=== PATIENT | female | born 1940 | race Caucasian/White ===

== ENCOUNTER → 2021-05-18 | Day surgery (SDC) | payer MEDICARE, OTHER ==
[~2021-05-18] MED LIST: Acetaminophen/HYDROcodone 325-5 MG Tab PO PRN; Lactated Ringers 1,000 ML IV SCH; Lactated Ringers 1,000 ML ONE; Lidocaine 1% 4 ML ONE; Lidocaine 1%/Sod Bicarbonate in NS 8.4% 1 ML Syringe IDERM PRN; Ondansetron 4 MG/2 ML SDV IVPUSH PRN; Ondansetron 4 MG/2 ML SDV ONE; Propofol 200 MG/20 ML SDV ONE; Sodium Chloride 0.9% 10 ML Syringe FLUSH PRN; Vancomycin 1 GM SDV ONE; ceFAZolin 1 GM Vial ONE; ePHEDrine 50 MG/ML SDV ONE; fentaNYL 100 MCG/2 ML SDV IVPUSH PRN; fentaNYL 100 MCG/2 ML SDV ONE
[2021-05-18] MEDS: Morphine 8 MG, EPINEPHrine 0.3 MG, Cefuroxime 750 MG, Ketorolac 30 MG, Sodium Chloride ... PRN ×10 (08:17→08:42)
[2021-05-18] MEDS: Vancomycin 1 GM SDV ONE ×2 (08:18→08:42)
--- NOTE | 2021-05-18 08:32 | PCM.PREANE ---
Preanesthetic Assessment - Procedure Proposed Procedure: Right total hip replacement - Anesthesia/Transfusion/Family Hx Anesthesia History: Prior Anesthesia Reaction Type of Anesthesia Reaction: Excessive Nausea/Vomiting Family History of Anesthesia Reaction: No Transfusion History: No Prior Transfusion(s) Intubation History: Unknown - Review of Systems General: No Symptoms Pulmonary: No Symptoms Cardiovascular: No Symptoms, Other (HX htn, hld) Gastrointestinal: No Symptoms Neurological: No Symptoms Other: Reports: Thyroid Problems - Physical Assessment NPO Status Date: 05/17/21 NPO Status Time: 16:00 Vital Signs: Last Vital Signs Temp 36.7 C 05/18/21 06:10 Pulse 57 L 05/18/21 06:10 Resp 16 05/18/21 06:10 BP 140/79 05/18/21 06:10 Pulse Ox 96 05/18/21 06:10 Height: 1.75 m Weight: 80.739 kg ASA Class: 3 Mental Status: Alert & Oriented x3 Airway Class: Mallampati = 2 Dentition: Reports: Normal Dentition Thyro-Mental Finger Breadths: 3 Mouth Opening Finger Breadths: 3 ROM/Head Extension: Full Lungs: Clear to Auscultation, Normal Respiratory Effort Cardiovascular: Regular Rate, Regular Rhythm - Lab Values: Laboratory Last Values PT 10.3 SECONDS (9.7-12.0) 05/18/21 06:00 INR 0.93 05/18/21 06:00 APTT 25.7 SECONDS (21.7-31.4) 05/18/21 06:00 Blood Type A POSITIVE 05/18/21 06:35 Gel Antibody Screen Negative 05/18/21 06:35 - Allergies Allergies/Adverse Reactions: Allergies Allergy/AdvReac Type Severity Reaction Status Date / Time No Known Allergies Allergy Verified 05/18/21 07:13 - Blood Blood Available: No Product(s) Available: None - Anesthesia Plan Pre-Op Medication Ordered: None - Acknowledgements Anesthesia Type Planned: Spinal Pt an Appropriate Candidate for the Planned Anesthesia: Yes Alternatives and Risks of Anesthesia Discussed w Pt/Guardian: Yes Pt/Guardian Understands and Agrees with Anesthesia Plan: Yes PreAnesthesia Questionnaire HEENT History: Reports: Cataract, Glaucoma, Impaired Vision Cardiovascular History: Reports: High Cholesterol, Hypertension Respiratory History: Reports: None Gastrointestinal History: Reports: Other (See Below) Other Gastrointestinal History: POST OP NAUSEA AND VOMITING Genitourinary History: Reports: None FILE CLERK History: Reports: None Musculoskeletal History: Reports: Osteoarthritis, Other (See Below) Other Musculoskeletal History: WRIST PAIN, RADIAL STYLOID TENOSYNOVITIS, LEFT WRIST SURGERY Neurological History: Reports: None Psychiatric History: Reports: None Endocrine/Metabolic History: Reports: Hypothyroidism Hematologic History: Reports: None Immunologic History: Reports: None Oncologic (Cancer) History: Reports: None Dermatologic History: Reports: Other (See Below) Other Dermatologic History: MALIGNANT MELANOMA - Infectious Disease History Infectious Disease History: Reports: None - Past Surgical History Head Surgeries/Procedures: Reports: None HEENT Surgical History: Reports: Cataract Surgery Cardiovascular Surgical History: Reports: None Respiratory Surgical History: Reports: None GI Surgical History: Reports: None Female Surgical History: Reports: D&C Male Surgical History: Reports: None Endocrine Surgical History: Reports: Thyroidectomy Neurological Surgical History: Reports: Other (See Below) Other Neurological Surgeries/Procedures: BACK SURGERY Musculoskeletal Surgical History: Reports: None Oncologic Surgical History: Reports: None Dermatological Surgical History: Reports: None - SUBSTANCE USE Tobacco Use Status *Q: Never Tobacco User Recreational Drug Use History: No - HOME MEDS Home Medications: Home Meds Aspirin [Aspirin EC] 325 mg PO BID #70 tab 05/17/21 [Rx] Furosemide [Lasix] 20 mg PO ASDIRECTED 05/17/21 [History] Hydrocodone/Acetaminophen [HYDROcodone-Acetaminophen 5-325 MG] 1 - 2 each PO Q6H PRN #30 tablet 05/17/21 [Rx] Levothyroxine [Synthroid] 100 mcg PO DAILY 05/17/21 [History] Multivitamin 1 tab PO DAILY 05/17/21 [History] Propylene Glycol/PEG 400/Pf [Systane 0.3-0.4% Eye Drop] 1 dose EYEBOTH ASDIRECTED PRN 05/17/21 [History] Rosuvastatin [Crestor] 20 mg PO DAILY 05/17/21 [History] amLODIPine [Norvasc] 2.5 mg PO DAILY 05/17/21 [History] atenoloL [Atenolol] 50 mg PO DAILY 05/17/21 [History] Acetaminophen [Tylenol Arthritis] 650 mg PO Q4H PRN #0 05/18/21 [Rx] - CURRENT (IN HOUSE) MEDS Current Meds: Current Medications Morphine Sulfate 8 mg/Epinephrine HCl 0.3 mg/Cefuroxime Sodium 750 mg/Ketorolac Tromethamine 30 mg/Sodium Chloride 7.9 ml 0 mg .XX ASDIRECTED PRN PRN Reason: Pain Stop: 05/18/21 18:00 Last Admin: 05/18/21 08:17 Dose: 788.3 mg Documented by: Lactated Ringer's (Ringers, Lactated) 1,000 mls @ 125 mls/hr IV ASDIRECTED FELICIA Stop: 05/18/21 23:00 Last Admin: 05/18/21 06:35 Dose: 125 mls/hr Documented by: Lidocaine/Sodium Bicarbonate (Lidocaine 1%/Sod Bicarbonate In Ns 8.4% 1 Ml Syringe) 0.25 ml IDERM ONETIME PRN PRN Reason: Prior to IV Start Stop: 05/18/21 18:00 Last Admin: 05/18/21 06:35 Dose: 0.25 ml Documented by: Sodium Chloride (Sodium Chloride 0.9% 10 Ml Syringe) 10 ml FLUSH ASDIRECTED PRN PRN Reason: Keep Vein Open Stop: 05/18/21 18:00 Discontinued Medications Cefazolin Sodium (Cefazolin 1 Gm Vial) Confirm Administered Dose 2 gm .ROUTE .STK-MED ONE Stop: 05/18/21 07:08 Ephedrine Sulfate (Ephedrine 50 Mg/Ml Sdv) Confirm Administered Dose 50 mg .ROUTE .STK-MED ONE Stop: 05/18/21 08:19 Fentanyl (Fentanyl 100 Mcg/2 Ml Sdv) Confirm Administered Dose 100 mcg .ROUTE .STK-MED ONE Stop: 05/18/21 06:44 Lidocaine HCl (Xylocaine-Mpf 1%) Confirm Administered Dose 4 mls @ as directed .ROUTE .STK-MED ONE Stop: 05/18/21 07:27 Lactated Ringer's (Ringers, Lactated) Confirm Administered Dose 1,000 mls @ as directed .ROUTE .STK-MED ONE Stop: 05/18/21 08:15 Miscellaneous Medication (Phenylephrine Hcl In 0.9% Nacl 1 Mg/10 Ml Syringe) Confirm Administered Dose 1 mg .ROUTE .STK-MED ONE Stop: 05/18/21 07:59 Propofol (Propofol 200 Mg/20 Ml Sdv) Confirm Administered Dose 600 mg .ROUTE .STK-MED ONE Stop: 05/18/21 06:44 Tranexamic Acid (Tranexamic Acid 1,000 Mg/10 Ml Amp) Confirm Administered Dose 1,000 mg .ROUTE .ST-MED ONE Stop: 05/18/21 06:29 Last Admin: 05/18/21 08:17 Dose: 1,000 mg Documented by: Vancomycin HCl (Vancomycin 1 Gm Sdv) Confirm Administered Dose 1 gm .ROUTE .ST- MED ONE Stop: 05/18/21 06:29 Vancomycin HCl (Vancomycin 1 Gm Sdv) Confirm Administered Dose 1 gm .ROUTE .ST- MED ONE Stop: 05/18/21 06:44 Last Admin: 05/18/21 08:18 Dose: 1 gm Documented by:
--- NOTE | 2021-05-18 09:18 | PCM.POSTAN ---
POST ANESTHESIA ASSESSMENT - MENTAL STATUS Mental Status: Alert, Oriented - VITAL SIGNS Vital Signs: Last Vital Signs Temp 36.7 C 05/18/21 06:10 Pulse 57 L 05/18/21 06:10 Resp 16 05/18/21 06:10 BP 140/79 05/18/21 06:10 Pulse Ox 96 05/18/21 06:10 - RESPIRATORY Respiratory Status: Respiratory Rate WNL, Airway Patent, O2 Saturation Stable - CARDIOVASCULAR CV Status: Pulse Rate WNL, Blood Pressure Stable - GASTROINTESTINAL GI Status: No Symptoms - PAIN Pain Score: 0 - POST OP HYDRATION Hydration Status: Adequate & Stable
--- NOTE | 2021-05-18 10:05 | CR ---
Pelvis and right hip: AP view of the pelvis was obtained as well as AP and crosstable lateral views of the right hip. Comparison: Prior CT right hip study of 05/10/21. Recently placed right hip prosthesis is noted. Components are aligned. Soft tissue air is noted from the surgical procedure. No acute bony abnormality is seen around the right hip. Impression: 1. Satisfactory postoperative radiographic appearance of recently placed right hip prosthesis. Diagnostic code #2
--- NOTE | 2021-05-18 12:08 | PCM.OPNOTE ---
- General Post-Op/Procedure Note Date of Surgery/Procedure: 05/18/21 Operative Procedure(s): right total hip arthroplasty with [employer] Pre Op Diagnosis: right hip osteoarthrosis Post-Op Diagnosis: Same Anesthesia Technique: Local, MAC, Spinal Primary Surgeon: Asad Galarza Anesthesia Provider: Aravind Herrera Distance Education Faculty Liaison: Tiffanie Holt Distance Education Faculty Liaison: Brittney Molina EBL in mLs: 150 Complications: None Condition: Good Free Text/Narrative:: Intake & Output 05/17/21 05/18/21 05/18/21 22:59 06:59 14:59 Intake Total 100 Balance 100 52 5 stem 28-2.7 MDM
--- NOTE | 2021-05-18 12:35 | PCM48HPAN ---
Post Anesthesia Note - EVALUATION WITHIN 48HRS OF ANESTHETIC Vital Signs in Normal Range: Yes Patient Participated in Evaluation: Yes Respiratory Function Stable: Yes Airway Patent: Yes Cardiovascular Function Stable: Yes Hydration Status Stable: Yes Pain Control Satisfactory: Yes Nausea and Vomiting Control Satisfactory: Yes Mental Status Recovered: Yes Vital Signs: Last Vital Signs Temp 36.9 C 05/18/21 10:00 Pulse 60 05/18/21 11:00 Resp 16 05/18/21 11:00 BP 149/62 H 05/18/21 11:00 Pulse Ox 98 05/18/21 11:00
--- NOTE | 2021-06-02 09:39 | OR ---
DATE OF OPERATION: 05/18/2021 SURGEON: Asad Galarza MD OPERATION PERFORMED: Right total hip arthroplasty with [employer]. PREOPERATIVE DIAGNOSIS: Right hip osteoarthrosis. POSTOPERATIVE DIAGNOSIS: Right hip osteoarthrosis. ANESTHESIA: Local MAC with spinal. ANESTHESIA PROVIDER: Aravind Herrera. ASSISTANTS: Tiffanie Holt PA-C and Brittney Molina LPN ESTIMATED BLOOD LOSS: 150 mL. COMPLICATIONS: None. CONDITION: Stable. IMPLANTS: 1. Juan F size 52 mm solid Tritanium II acetabular cup. 2. 28 -2.7 MDM. DESCRIPTION OF PROCEDURE: The patient was identified in the preoperative holding area. Proper site was marked, identified by the surgeon. The patient was taken back to the operating theater, where after adequate anesthesia, the patient was placed in a left lateral decubitus position. Axillary roll was placed. Pegs were then placed and well padded. The patient's gluteal fold was parallel to the floor. Right hip was then sterilely prepped and draped in the usual sterile fashion. OR time- out was performed. The patient received 2 g of IV Ancef. At this time, 3 small focal incisions were made on the iliac crest 3 fingerbreadths posterior to the ASIS. Three 4-0 Schanz pins were then placed in the [employer] robotic array. A checkpoint was placed down onto the iliac crest. Standard posterior incision was made. This was taken down to the IT band and gluteal fascia, which was incised along the incisional length. Charnley retractor was then placed. Short external rotators were identified. Checkpoint was placed on the greater trochanter and leg lengths were obtained for the [employer] robotic plan. Takedown of the short external rotators as well as capsulotomy was done from the level of the piriformis down to the lesser trochanter. Hip was then dislocated. Neck cut was completed and attention was turned to the acetabulum. Anterior and posterior acetabular retractors were placed. Checkpoint was placed on the superior rim of the acetabulum. Circumferential removal of the pulvinar as well as labrum was done at this time. Fifteen points were then obtained intra- articularly off the acetabula and then 15 more were off extra-articularly. The anterior and posterior horns were marked and the checkpoints were marked on the array. The [employer] robotic plan was then undertaken and a 52 mm reamer was brought in on the [employer] robotic arm. This was taken down until all green was gone and it was found to be an adequate ream. 52 mm Tritanium II acetabular cup was then placed on the [employer] robotic arm, was locked into place at 45 degrees of abduction and 20 degrees of anteversion. This was impacted into place and was found to have a secure fit. The MDM liner was then impacted in place. Attention was turned to the femur. Box chisel was used out laterally. Starter awl was placed down the canal. Starting with the 0 broach, I was able to broach up to a size 5, which was found to be rotationally and vertically stable. At this time, trial size 28 -2.7 MDM components were placed. The patient's hip was reduced, had adequate yarsani of leg lengths, and was stable throughout range of motion. Bone hook was used to dislocate the hip. All trial implants were removed. Size 5 Accolade 2 stem was then impacted in place. The MDM components were constructed on the back table and the 28 -2.7 MDM components were impacted onto the stem. Hip was then relocated. #5 Ethibond suture was used for closure of the short external rotators and capsule. 1 L pulse lavage irrigation with Ancef was irrigated through the hip along with 400 mL Irrisept irrigation. Periarticular injection was completed. Topical tranexamic acid and vancomycin powder were applied. #2 barbed suture was used for closure of the IT band and gluteal fascia. 2-0 Vicryl was used subcutaneously, and Prineo was used for closure of the skin. The patient tolerated the procedure well and was sent to the PACU in stable condition. Please note, all [employer] robotic arrays and checkpoints were removed before closure. MMODAL /[id number]
== END | disposition home or self-care (01) ==
LOC: JD.SDS 06:00
PROVIDERS: ATTEND Orthopaedic Surgery
DX: M16.11 Unilateral primary osteoarthritis, right hip (principal); E78.5 Hyperlipidemia, unspecified; E03.9 Hypothyroidism, unspecified; I10 Essential (primary) hypertension; Z98.890 Other specified postprocedural states; Z79.899 Other long term (current) drug therapy; Z01.818 Encounter for other preprocedural examination
CPT/HCPCS: 01214; 36415; 73501-26-RT; 73501-RT; 85610; 85730; 86850; 86900; 86901; 97110-GP; 97116-GP; 97161-GP; 99100; C1713; C1776; J0171; J0690; J0697; J1885; J2270; J2370; J2405; J2704; J3010; J3370; J7120

== ENCOUNTER → 2024-06-11 | Day surgery (SDC) | payer MEDICARE, OTHER ==
[~2024-06-11] MED LIST changes: -Acetaminophen/HYDROcodone 325-5 MG Tab PO PRN; +Bupivacaine 0.25% 10 ML SDV ONE; +HYDROmorphone 0.5 MG/0.5 ML Syringe IVPUSH PRN; -Lactated Ringers 1,000 ML IV SCH; -Lactated Ringers 1,000 ML ONE; +Lidocaine 1% 0 ML ONE; -Lidocaine 1% 4 ML ONE; -Lidocaine 1%/Sod Bicarbonate in NS 8.4% 1 ML Syringe IDERM PRN; +Midazolam 1 MG/ML 2 ML SDV ONE; -Ondansetron 4 MG/2 ML SDV ONE; -Propofol 200 MG/20 ML SDV ONE; +Ropivacaine 0.5% 5 MG/ML 30 ML SDV ONE; +Sodium Chloride 0.9% 10 ML Syringe FLUSH SCH; -Vancomycin 1 GM SDV ONE; -ceFAZolin 1 GM Vial ONE; +ceFAZolin 2 GM Vial ONE; -ePHEDrine 50 MG/ML SDV ONE; -fentaNYL 100 MCG/2 ML SDV ONE
[2024-06-11] MEDS: Lactated Ringers 1,000 ML IV SCH (07:10)
== END | disposition home or self-care (01) ==
LOC: JD.SDS 07:00
PROVIDERS: ATTEND Orthopaedic Surgery
DX: G56.11 Other lesions of median nerve, right upper limb (principal); I10 Essential (primary) hypertension; E78.5 Hyperlipidemia, unspecified; Z79.899 Other long term (current) drug therapy
CPT/HCPCS: 64721; J0665; J0690; J2250; J2795; J7120; J3490